=== PATIENT | female | born 1945 | race Caucasian/White ===

== ENCOUNTER 2016-07-27 09:40 | Day surgery (SDC) | payer MEDICARE, BC ==
--- NOTE | 2016-07-26 09:45 | PCM.PREANE ---
Preanesthetic Assessment - ANESTHESIA/TRANSFUSION/FAMILY HX Anesthesia/Transfusion History: Prior Anesthesia (GA and MAC without problems.) , Prior Transfusion (during CABG 08/2013) Other Type of Anesthesia Reaction Comment: Denies any known problem in past, no known family hx: prblms Family History of Anesthesia Reaction: No - REVIEW OF SYSTEMS Constitutional: Reports: no symptoms INFORMATION RESOURCES DIRECTOR: Reports: no symptoms Respiratory: Reports: no symptoms Cardiovascular: Reports: no symptoms GI: Reports: no symptoms - PHYSICAL ASSESSMENT Height: 1.52 m Weight: 94.347 kg ASA Class: 3 Mental Status: alert & oriented x3 Airway Class: Mallampati = 2 Dentition: Reports: normal dentition ROM/Head Extension: full Respiratory Status: lungs clear to auscultation bilaterally Cardiovascular Status: regular rate & rhythm, normal S1, S2, no murmur - ALLERGIES Allergies/Adverse Reactions: Allergies Allergy/AdvReac Type Severity Reaction Status Date / Time No Known Allergies Allergy Verified 06/04/14 14:22 - BLOOD Blood Available: No - ANESTHESIA PLAN Beta-Nathalia Last Dose Date: 07/27/16 Beta-Nathalia Last Dose Time: 08:45 Anesthesia Type Planned: MAC - ACKNOWLEDGEMENTS Pt an appropriate candidate for the planned anesthesia: Yes Alternatives and risks of anesthesia discussed w pt/guardian: Yes Pt/Guardian understands and agree with anesthesia plan: Yes PreAnesthesia Questionnaire HEENT History: Reports: Allergic rhinitis, Glaucoma Cardiovascular History: Reports: Bypass, CAD, Hypertension, SD Other Cardiovascular History: states had mild heartattack Gastrointestinal History: Reports: Colon polyp 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: Neurological History: Reports: Other (see below) Other Neuro History: sinus headaches Endocrine/Metabolic History: Reports: Obesity/BMI 30+ Hematologic History: Reports: Anemia, Blood transfusion(s) - Past Surgical History Head Surgeries/Procedures: Reports: None HEENT Surgical History: Reports: Cataract surgery, Tonsillectomy Cardiovascular Surgical History: Reports: Coronary artery bypass GI Surgical History: Reports: Appendectomy, Cholecystectomy, Colonoscopy, Hernia , abdominal Female Surgical History: Reports: Breast biopsy, Hysterectomy - SUBSTANCE USE Smoking Status *Q: Former Smoker Days Per Week of Alcohol Use: 0 Number of Drinks Per Day: 0 Total Drinks Per Week: 0 Recreational Drug Use History: No - HOME MEDS Home Medications: Home Meds Hydrochlorothiazide 25 mg PO BRK 04/29/14 [History] Lisinopril 10 mg PO BRK 09/16/13 [History] Metoprolol Succinate [Toprol XL 100mg] 100 mg PO BRK 09/16/13 [History] Aspirin [Halfprin] 81 mg PO DAILY 06/04/14 [History] Latanoprost 1 drop EYEBOTH BEDTIME 06/04/14 [History] Fluticasone Propionate [Flonase Allergy Relief] 2 spray NASBOTH DAILY 07/24/16 [ History] - CURRENT (IN HOUSE) MEDS Current Meds: Current Medications Lactated Ringer's (Ringers, Lactated) 1,000 mls @ 125 mls/hr IV ASDIRECTED ERI
[~2016-07-27 09:40] MED LIST: Lactated Ringers 1,000 ML IV SCH
[2016-07-27] MEDS ORDERED: fentaNYL 100 MCG/2 ML SDV ONE (10:31)
[2016-07-27] MEDS ORDERED: Midazolam 1 MG/ML 2 ML SDV ONE (10:31)
[2016-07-27] MEDS ORDERED: Propofol 200 MG/20 ML SDV ONE ×2 (10:31→11:19)
[2016-07-27] MEDS ORDERED: Lidocaine 2% 5 ML SDV ONE (10:31)
[2016-07-27] MEDS ORDERED: cefOXitin 1 GM Vial ONE (11:10)
[2016-07-27] MEDS ORDERED: ePHEDrine 50 MG/ML SDV ONE (11:20)
[2016-07-27] MEDS ORDERED: Lactated Ringers 1,000 ML IV SCH (11:45)
--- NOTE | 2016-07-27 11:47 | PCM.OPNOTE ---
- General Post-Op/Procedure Note Date of Surgery/Procedure: 07/27/16 Operative Procedure(s): Colonoscopy Pre Op Diagnosis: Personal history of colon polyps Post-Op Diagnosis: No evidence of neoplasia. Minimal sigmoid diverticulosis. Anesthesia Technique: MAC (ASA III) Primary Surgeon: Zay Domingo Equal Opportunity Assistant: Marika Inman Condition: Good Free Text/Narrative:: Dictation [id number]
--- NOTE | 2016-07-27 12:14 | PCM.POSTAN ---
POST ANESTHESIA ASSESSMENT - MENTAL STATUS Mental Status: alert, oriented - RESPIRATORY Respiratory Status: respiratory rate WNL, airway patent, O2 saturation stable - CARDIOVASCULAR CV Status: pulse rate WNL, blood pressure stable - GASTROINTESTINAL GI Status: no symptoms - POST OP HYDRATION Hydration Status: adequate & stable
--- NOTE | 2016-07-27 12:15 | PCM48HPAN ---
Post Anesthesia Note - EVALUATION WITHIN 48HRS OF ANESTHETIC Vital Signs in Normal Range: Yes Patient Participated in Evaluation: Yes Respiratory Function Stable: Yes Airway Patent: Yes Cardiovascular Function Stable: Yes Hydration Status Stable: Yes Pain Control Satisfactory: Yes Nausea and Vomiting Control Satisfactory: Yes Mental Status Recovered: Yes
[2016-07-27 12:28] VITALS: BP 118/61
--- NOTE | 2016-07-27 13:18 | OR ---
SURGEON: Zay Domingo M.D. DATE OF PROCEDURE: 07/27/2016 OPERATION PERFORMED: Colonoscopy. LEASING MANAGER: Dr. Inman. ANESTHESIA: MAC. ASA CLASSIFICATION: III. PREOPERATIVE DIAGNOSIS: Personal history of colon polyps. POSTOPERATIVE DIAGNOSIS: Mild sigmoid diverticulosis. DESCRIPTION OF PROCEDURE: The patient was taken to the endoscopy room and positioned on the endoscopy table in the left lateral decubitus position. Time-out was called for appropriate identification of the patient and procedure. Monitored anesthesia care was provided. The colonoscope was inserted into the rectum and advanced without difficulty to the proximal colon cannulating the distal ileum and visualizing the anastomosis. The distal ileum shows no acute inflammatory changes. The anastomosis was widely patent and showed no suspicious lesions. The colonoscope was retroflexed to visualize the remainder of the ascending colon from below, then straightened and slowly withdrawn. The distal ileum anastomosis, ascending colon, hepatic flexure, transverse colon, splenic flexure, descending colon were very well visualized. There were no tumors, polyps, diverticula, or angiodysplastic changes. A few small scattered sigmoid diverticula were identified. No stricture, spasm, or bleeding was noted from the sigmoid colon. The colonoscope was withdrawn to the rectum and retroflexed to visualize the anal orifice from above. The patient does have some chronic hemorrhoidal changes, but nothing acute, no bleeding. No polyps were encountered in the distal rectum. The colonoscope was then straightened, the rectum aspirated, and the colonoscope removed. The patient tolerated the procedure well and was taken to recovery room in stable condition. SNEHAL / KRISTEN /[id number]
== END 2016-07-27 12:32 | disposition home or self-care (01) ==
LOC: MW.SDS 09:40
PROVIDERS: ATTEND Surgery
DX: Z12.11 Encounter for screening for malignant neoplasm of colon (principal); K57.30 Diverticulosis of large intestine without perforation or abscess without bleeding; I10 Essential (primary) hypertension; Z79.82 Long term (current) use of aspirin; Z79.899 Other long term (current) drug therapy; Z90.49 Acquired absence of other specified parts of digestive tract; Z95.1 Presence of aortocoronary bypass graft; Z98.890 Other specified postprocedural states; Z87.891 Personal history of nicotine dependence
CPT/HCPCS: 45378; J0694; J2250; J3010; J7120; 00810; J2704

== ENCOUNTER → 2016-08-21 | Outpatient (CLI) | payer MEDICARE, BC | LOC: MW.CHFP 07:34 | PROVIDERS: ATTEND Student in an Organized Health Care Education/Training Program | DX: I10 Essential (primary) hypertension (principal); D22.9 Melanocytic nevi, unspecified; I25.10 Atherosclerotic heart disease of native coronary artery without angina pectoris; Q82.8 Other specified congenital malformations of skin | CPT/HCPCS: 11200; 17110; 36415; 80053; 80061; 99214 ==

== ENCOUNTER → 2016-09-06 | Outpatient (CLI) | payer MEDICARE, BC ==
--- NOTE | 2016-09-06 13:57 | MY ---
EXAMINATION: Bilateral digital mammography utilizing CAD. HISTORY: Screening exam. Comparison is made to previous studies dated 01/15/2015, 04/25/2013, 2011. FINDINGS: Bilateral scattered fibroglandular densities. No suspicious calcifications, masses or ar chitectural distortions. No pathologic appearing lymph nodes, no abnormal skin thickening or nippl e inversion. CAD highlighted regions appear normal at this time. IMPRESSION: BI-RADS category I - negative mammogram. Continued screening according to ACR-ACS gu idelines suggested. THE FALSE-NEGATIVE RATE OF MAMMOGRAM IS APPROXIMATELY 10%. MANAGEMENT OF A PALPABLE ABNORMALITY MUST BE BASED UPON CLINICAL GROUNDS. SENSITIVITY FOR DETECTION OF ABNORMALITIES IN DENSE BREASTS IS LOW. NOTE: A letter will be sent to the patient regarding findings. [facility] -- DANY Lazcano [phone] - FAX [phone]
== END | disposition home or self-care (01) ==
LOC: MW.MAM 08:27
PROVIDERS: ATTEND Student in an Organized Health Care Education/Training Program
DX: Z12.31 Encounter for screening mammogram for malignant neoplasm of breast (principal)
CPT/HCPCS: G0202; G0202-26

== ENCOUNTER 2021-10-24 09:58 | Day surgery (SDC) | payer MEDICARE, BC ==
[2021-10-24] MEDS ORDERED: propofoL 50 ML ONE (10:11)
[2021-10-24] MEDS ORDERED: Propofol 200 MG/20 ML SDV ONE (10:33)
[2021-10-24] MEDS ORDERED: Lactated Ringers 1,000 ML IV SCH (12:15)
[2021-10-24 13:12] VITALS: BP 110/52; PULSE 54
== END 2021-10-24 13:08 | disposition home or self-care (01) ==
LOC: MW.SDS 09:58
PROVIDERS: ATTEND Surgery
DX: Z12.11 Encounter for screening for malignant neoplasm of colon (principal); D12.5 Benign neoplasm of sigmoid colon; K57.30 Diverticulosis of large intestine without perforation or abscess without bleeding; Z80.0 Family history of malignant neoplasm of digestive organs; I25.10 Atherosclerotic heart disease of native coronary artery without angina pectoris; I10 Essential (primary) hypertension; E66.01 Morbid (severe) obesity due to excess calories; I25.2 Old myocardial infarction; Z88.8 Allergy status to other drugs, medicaments and biological substances; Z79.82 Long term (current) use of aspirin; Z79.899 Other long term (current) drug therapy; Z98.890 Other specified postprocedural states; Z87.891 Personal history of nicotine dependence; Z68.41 Body mass index [BMI] 40.0-44.9, adult; Z90.49 Acquired absence of other specified parts of digestive tract
CPT/HCPCS: 45380; J2704; J7120